=== PATIENT | female | born 1975 | race Caucasian/White ===

== ENCOUNTER 2020-01-16 11:20 | Outpatient (REF) | payer MEDICAID, SELFPAY ==
[2020-01-18 14:45] LABS: SARS-CoV-2 RNA Source Nasal/Nares
[2020-01-18 14:46] LABS: SARS-CoV-2 RNA Not Detected (NotDetected)
== END 2020-01-16 11:40 ==
LOC: NCHCN 11:20
PROVIDERS: Visit Provider Internal Medicine
DX: Z20.828 Contact with and (suspected) exposure to other viral communicable diseases (principal)
CPT/HCPCS: U0003